=== PATIENT | male | born 1975 | race African-American/Black ===

== ENCOUNTER 2021-10-20 05:45 | Emergency (ER) | payer MEDICAID, OTHER ==
[~2021-10-20] VITALS: Ht 188 cm; Wt 115.0 kg
--- NOTE | 2021-10-20 07:05 | NUR ---
ON ASSESSMENT, NOTED EXTREME FACIAL SWELLING, UNABLE TO OPEN LEFT EYE, LIPS SWOLLEN. PT DENIES DIFFICULT BREATHING, SWOLLOWING. SKIN CRACKED AND WEEKING. PT UNSURE OF SKIN CONDITION, BUT STATES HE TAKES RENVOQ DAILY. PT CURRENTLY INCARCERATED AND HAS MISSED 2 DOSES. CALLED MD TO BEDSIDE FOR EVALUATION. MD GAVE ORDERS FOR ROUTINE LABS, AND REQUESTING PTS MEDICATION FROM THE [facility].
--- NOTE | 2021-10-20 07:15 | NUR ---
PER ND ANIMAL RIDE ATTENDANT WE ARE UNABLE TO RECIEVE PTS MEDICATION FROM HIS PROPERTY DUE INABILITY TO VERIFY CORRECT MEDICATION IN RX BOTTLE. AT THIS TIME I AM REQUESTING THE NAME AND DOSE OF MEDICATION FROM BOTTLE LABEL. ER ABLE TO WRITE NEW RX. CURRENTLY WAITING FOR ND CORRECTION TO RESPOND.
--- NOTE | 2021-10-20 07:36 | NUR ---
Spoke to nurse at [facility] to determine best course of action to getting pt prescribed Rinvoq. Because of the upcoming holiday, there was concern that the medication will be unable to be verified and filled in a timely manner. She will contact her suprevisor and return a call.
[2021-10-20 07:48] LABS: BASOPHILS % (AUTO) 0.4 % (0-1); EOSINOPHILS # (AUTO) 0.3 X10'3 (0-0.9); EOSINOPHILS % (AUTO) 4.9 % (0-6); HEMATOCRIT 41.7 % (42.0-52.0); HEMOGLOBIN 14.4 g/dl (14.0-17.9); LYMPHOCYTES # (AUTO) 1.1 X10'3 (1.1-4.8); LYMPHOCYTES % (AUTO) 16.9 % (21-51); MEAN CORPUSCULAR HEMOGLOBIN 33.2 PG (27.0-31.0); MEAN CORPUSCULAR HGB CONC 34.6 g/dL (33.0-36.5); MEAN CORPUSCULAR VOLUME 95.9 FL (78-98); MEAN PLATELET VOLUME 8.5 FL (7.4-10.4); MONOCYTES # (AUTO) 0.6 X10'3 (0-0.9); MONOCYTES % (AUTO) 10.1 % (2-12); NEUTROPHILS # (AUTO) 4.3 X10'3 (1.8-7.7); NEUTROPHILS % (AUTO) 67.7 % (42-75); PLATELET COUNT 302 X10'3 (140-440); RED BLOOD COUNT 4.35 X10'6 (4.70-6.10); RED CELL DISTRIBUTION WIDTH 14.3 % (11.5-14.5); WHITE BLOOD COUNT 6.3 X10'3 (4.5-11.0)
--- NOTE | 2021-10-20 08:11 | NUR ---
Norman from [facility] returned call. They have retreived the pt's medication and are able to dose them until they can verify and fill the new prescription written by our EDMD.
[2021-10-20 08:13] LABS: ALANINE AMINOTRANSFERASE 21 U/L (12-78); ALBUMIN 3.7 G/DL (3.4-5.0); ALBUMIN/GLOBULIN RATIO 0.8 (1.1-1.5); ALKALINE PHOSPHATASE 56 IU/L (46-116); ANION GAP 5 (8-16); ASPARTATE AMINO TRANSFERASE 18 U/L (10-37); BILIRUBIN,TOTAL 0.4 MG/DL (0.1-1.0); BLOOD UREA NITROGEN 11 MG/DL (7-18); BUN/CREATININE RATIO 11.1 (5.4-32.0); C-REACTIVE PROTEIN < 0.05 MG/DL (0.0-0.5); CALCIUM 9.5 MG/DL (8.5-10.1); CHLORIDE 103 MMOL/L (99-107); CREATININE 0.99 MG/DL (0.60-1.10); GLUCOSE 99 MG/DL (70-104); MAGNESIUM 1.9 MG/DL (1.5-2.4); POTASSIUM 3.9 MMOL/L (3.5-5.1); SODIUM 137 MMOL/L (135-145); TOTAL CARBON DIOXIDE 28.6 MMOL/L (24-32); TOTAL PROTEIN 8.2 G/DL (6.4-8.2); eGFR > 90 ML/MIN
[2021-10-20] MEDS ORDERED: DOXYCYCLINE 100MG CAPSULE PO STA (08:42)
[2021-10-20] MEDS ORDERED: UPAD15TA PO (08:45)
[2021-10-20] MEDS ORDERED: DOXY-1 PO (08:45)
[2021-10-20 09:42] VITALS: BP 156/98
== END 2021-10-20 09:45 ==
LOC: EEVIPCON 05:46 → ER 05:46
DX: R22.0 Localized swelling, mass and lump, head (principal); L03.211 Cellulitis of face; Z88.0 Allergy status to penicillin; Z79.2 Long term (current) use of antibiotics; Z79.899 Other long term (current) drug therapy
CPT/HCPCS: 36415; 80053; 83735; 84145; 85025; 85651; 86140; 99284

== ENCOUNTER 2021-11-10 13:29 | Emergency (ER) | payer OTHER ==
[~2021-11-10] VITALS: Ht 188 cm; Wt 110.0 kg
[~2021-11-10 13:29] MED LIST: UPAD15TA PO
[2021-11-10] MEDS ORDERED: nitroGLYCERIN 0.4mg SUBLingual tab SL PRN (13:55)
[2021-11-10] MEDS ORDERED: cloNIDine 0.1 mg tablet PO ONE (13:55)
[2021-11-10] MEDS ORDERED: aspirin 81mg tab.chew PO ONE (13:55)
[2021-11-10 14:42] LABS: ALANINE AMINOTRANSFERASE 45 U/L (12-78); ALBUMIN/GLOBULIN RATIO 0.9 (1.1-1.5); ALKALINE PHOSPHATASE 57 IU/L (46-116); ANION GAP 7 (8-16); ASPARTATE AMINO TRANSFERASE 23 U/L (10-37); BILIRUBIN,TOTAL 0.1 MG/DL (0.1-1.0); BLOOD UREA NITROGEN 12 MG/DL (7-18); BUN/CREATININE RATIO 11.2 (5.4-32.0); CALCIUM 9.2 MG/DL (8.5-10.1); CHLORIDE 102 MMOL/L (99-107); CREATININE 1.07 MG/DL (0.60-1.10); D-DIMER < 0.19 MG/L FEU (0-0.50); GLUCOSE 117 MG/DL (70-104); POTASSIUM 4.4 MMOL/L (3.5-5.1); SODIUM 139 MMOL/L (135-145); TOTAL CARBON DIOXIDE 30.1 MMOL/L (24-32); TOTAL PROTEIN 8.4 G/DL (6.4-8.2); eGFR 90 ML/MIN
[2021-11-10 14:53] LABS: BASOPHILS % (AUTO) 0.3 % (0-1); HEMATOCRIT 41.8 % (42.0-52.0); HEMOGLOBIN 14.2 g/dl (14.0-17.9); LYMPHOCYTES % (AUTO) 59.1 % (21-51); MEAN CORPUSCULAR HEMOGLOBIN 32.6 PG (27.0-31.0); MEAN CORPUSCULAR HGB CONC 34.1 g/dL (33.0-36.5); MEAN CORPUSCULAR VOLUME 95.6 FL (78-98); MEAN PLATELET VOLUME 9.4 FL (7.4-10.4); MONOCYTES # (AUTO) 0.2 X10'3 (0-0.9); MONOCYTES % (AUTO) 7.5 % (2-12); NEUTROPHILS # (AUTO) 1.1 X10'3 (1.8-7.7); NEUTROPHILS % (AUTO) 32.1 % (42-75); PLATELET COUNT 133 X10'3 (140-440); RED BLOOD COUNT 4.37 X10'6 (4.70-6.10); RED CELL DISTRIBUTION WIDTH 13.5 % (11.5-14.5); WHITE BLOOD COUNT 3.3 X10'3 (4.5-11.0)
[2021-11-10 14:59] VITALS: BP_DIAS 108
[2021-11-10] MEDS ORDERED: metoprolol tartrate 50mg tablet PO ONE (15:00)
[2021-11-10 15:25] VITALS: BP_SYST 169
[2021-11-10 15:29] LABS: PLATELET ESTIMATE DECREASED; TOTAL CELLS COUNTED 100
== END 2021-11-10 16:33 ==
LOC: EEVIPCON 13:29 → ER 13:29
DX: I10 Essential (primary) hypertension (principal); R42 Dizziness and giddiness; R11.0 Nausea; Z88.0 Allergy status to penicillin; Z79.899 Other long term (current) drug therapy
CPT/HCPCS: 36415; 71045; 80053; 83880; 84484; 85007; 85025; 85379; 93005; 99285

== ENCOUNTER 2022-10-19 16:53 | Emergency (ER) | payer SELFPAY ==
--- NOTE | 2022-10-19 17:21 | NUR ---
PT WAS FOUND LAYING ON THE ER LOBBY FLOOR, REFUSING TO SIT IN CHAIRS. SECURITY WAS CALLED FOR ASSISTANCE. PT CONTINUED TO REFUSE TO SIT IN CHAIR, NOTED THAT PT HAD A PIV IN HIS LT ARM. PT WAS TOLD THAT THE PIV NEEDED TO BE REMOVED AT THIS TIME. PT CONTINUED TO LAY IN THE FLOOR, BEING UNCOOPERATIVE. PT WAS ASKED TO SIT UP SO THAT THE PIV COULD BE REMOVED, PT PROCEEDED TO MOVE VERY SLOWLY AND EVENTUALLY SAT IN A LOBBY CHAIR. ATTEMPTED TO REMOVE THE PIV, PT PUSHED MY HAND AWAY AND STATED "DONT TOUCH ME." PT WAS INFORMED THAT THE PIV NEEDED TO BE REMOVED. PT THEN INSISTED THAT HE HAD TO GO TO THE BATHROOM TO URINATE. PT WAS INFORMED THAT THE PIV WOULD HAVE TO BE REMOVED FIRST. PT ALLOWED THE PIV TO BE REMOVED AFTER MUCH EXPLANATION WITH SECURITY STANDING BY.
== END 2022-10-19 18:39 | disposition left against medical advice (07) ==
LOC: ER 16:54
DX: Z00.8 Encounter for other general examination (principal); Z53.21 Procedure and treatment not carried out due to patient leaving prior to being seen by health care provider